=== PATIENT | male | born 1945 | race Caucasian/White ===

== ENCOUNTER → 2018-04-10 | Outpatient (CLI) | payer OTHER ==
[~2018-04-10] MED LIST: UNABLE
== END | disposition home or self-care (01) ==
LOC: C.PATHSPEC 16:40
PROVIDERS: ATTEND Dermatology
DX: C44.41 Basal cell carcinoma of skin of scalp and neck (principal)

== ENCOUNTER 2022-05-19 17:23 | Inpatient (IN) ==
[2022-05-19] MEDS ORDERED: SODIUM CHLORIDE 0.9% 1000ML 250 ML IV ONE (17:33)
[2022-05-19] MEDS ORDERED: SODIUM CHLORIDE 0.9% 1000ML 2,000 ML IV ONE (17:33)
[2022-05-19] MEDS ORDERED: ACETAMINOPHEN 325 MG TAB PO STA (17:33)
[2022-05-19] MEDS ORDERED: cefTRIAXone SODIUM 2,000 MG/70 ML BAG IV STA (17:33)
--- NOTE | 2022-05-19 17:37 | Emergency Department Note ---
Impression & Plan Fever of unknown origin, Elevated troponin, Hyponatremia, SIRS (systemic inflammatory response syndrome) ED Provider Note NAME: CONNOR BROWN AGE: 76 SEX: M : 1945 ARRIVES VIA: Walk-In INFORMANT: Patient ED PROVIDER(S): Yovanny Perera DO CHIEF COMPLAINT: fever HPI: Patient is a 76-year-old male who presents the ER with no significant past medical history for fevers. This started yesterday. Has been having fevers as high as 102. He has been having uncontrollable shaking chills at home. Difficulty sleeping last night secondary to the uncontrollable chills. No headache or change in vision. No chest pain or shortness of breath. No nausea, vomiting, or diarrhea. No dysuria, urgency, or frequency. He does spend a fair amount of time outside clearing brush but has not noticed any tick bites. Has been taking intermittent Tylenol and Motrin. No one else around him has been sick. ROS: See above HPI for pertinent positives & negatives. A total of 10 systems reviewed and were otherwise negative. PAST MEDICAL HISTORY:See Below PAST SURGICAL HISTORY:See Below FAMILY HISTORY:See Below SOCIAL HISTORY:See Below HOME MEDICATIONS:See Below ALLERGIES:See Below VITALS:See Below PHYSICAL EXAMINATION: GENERAL: Sitting up in bed, alert, well appearing, well nourished, no distress, non-toxic EYE EXAM: normal conjunctiva. OROPHARYNX: no exudate, no erythema, lips, buccal mucosa, and tongue normal and mucous membranes are moist NECK: supple, no nuchal rigidity, no adenopathy, non-tender LUNGS: Clear to auscultation. Normal chest wall mechanics HEART: tachy, S1 normal and S2 normal ABDOMEN: abdomen soft, non-tender, normo-active bowel sounds, no masses, no rebound or guarding. UPPER EXTREMITIES: upper extremities are grossly normal. LOWER EXTREMITIES: No pitting edema. NEURO EXAM: Normal sensorium, cranial nerves II-XII grossly intact, normal speech, no gross weakness of arms, no gross weakness of legs. MEDICAL DECISION MAKING: Patient is a 76-year-old male who presents the found to be afebrile, tachycardic and hypotensive with systolic pressures in the 90s. IVs were established blood work was obtained. Labs show leukopenia at 4000. No significant anemia. Platelets were slightly low at 132. INR was unremarkable. BMP with mild hyponatremia 133. LFTs bilirubin were unremarkable. Calcium slightly low at 8.4. Trop was elevated at 30. Influenza was negative. Patient was given 2 g o f Rocephin. Patient was given IV doxycycline as it was concerned that this patient may have anaplasmosis with the leukopenia, hyponatremia and slightly low platelets at 130. Patient was updated bedside. Discussed with hospitalist for further evaluation as UA was clean there is no inclusion bodies in the Lyme were negative as well as influenza and COVID. Patient did drop his pressures after 2L slightly in the 90s and did trend back up with an additional 500 cc bolus. Triage Nursing notes reviewed. Limited review of prior medical records performed Vital Signs: reviewed and remarkable for febrile, tachycardic and hypotensive Differential diagnosis: Differential diagnosis includes etiologies such as sepsis, UTI, pneumonia, metabolic, electrolyte abnormalities, cardiac sources, intracerebral event, toxicologic, neurological, as well as others were entertained. ER treatment provided: See below Diagnostics interpreted by me: ECG: Sinus rhythm rate 95 Normal axis No PVCs QTC 434 Cardiac Monitoring: An order was placed for continuous cardiac monitoring. The monitor shows a rate of 90 with sinus rhythm. Laboratory studies: As stated above and show below. Imaging studies: Portable AP upright 1 view of the chest is unremarkable Consultation(s): Discussed with Thiago Gonzales for further evaluation Procedures: none Critical Care: None Past Med/Surg History Medical History (Updated 05/19/22 @ 22:32 by Yovanny Perera DO) AVM (arteriovenous malformation) of colon Hypothyroidism Surgical History (Updated 05/19/22 @ 19:44 by Mary Ellen Garza PA-C) History of appendectomy History of hernia repair Family History (Updated 05/19/22 @ 19:46 by Mary Ellen Garza PA-C) Mother Heart disease Father Heart disease Brother Diabetes Heart disease Social History Smoking Status: Former smoker Tobacco Type: Cigarettes Feels Safe at Home: Yes Allergies Allergies Allergy/AdvReac Type Severity Reaction Status Date / Time No Known Allergies Verified 05/19/22 18:16 Home Meds Home Medications Medication Instructions Recorded Confirmed ascorbic acid (vitamin C) 60 mg 60 mg PO DAILY 05/19/22 05/19/22 lozenges cholecalciferol (vitamin D3) 25 25 mcg PO DAILY 05/19/22 05/19/22 mcg (1,000 unit) capsule (Vitamin D3) levothyroxine 100 mcg tablet 100 mcg PO QAM 05/19/22 05/19/22 Results & Data (ED) Vital Signs Vital Signs - 24 hr 05/19/22 17:24 05/19/22 17:57 05/19/22 18:16 Temperature 38.6 C H Temperature Source Oral Pulse Rate 113 H Pulse Rate [Left Finger] 87 88 Pulse Rhythm [Left Finger] Regular Regular Pulse Strength [Left Finger] Normal Normal Respiratory Rate 17 18 18 Respiratory Effort / Characteristics Non-Labored Non-Labored Non-Labored Respiratory Depth Normal Normal Respiratory Pattern Regular Regular Blood Pressure 95/54 L Blood Pressure [Left Arm] 112/62 123/57 L Blood Pressure Mean 67 Blood Pressure Mean [Left Arm] 78 79 Blood Pressure Position [Left Arm] Sitting Pulse Oximetry 98 95 96 Oxygen Delivery Method Room Air Room Air Room Air Sepsis Recent Fever Within 48 Hours Yes Sepsis New/Unexplained Change in Mental Status N/A Sepsis Action Taken by Nursing Physician Notified 05/19/22 19:27 05/19/22 20:31 05/19/22 21:57 Temperature 37.3 C Temperature Source Oral Pulse Rate Pulse Rate [Left Finger] 82 74 62 Pulse Rhythm [Left Finger] Pulse Strength [Left Finger] Respiratory Rate 22 18 18 Respiratory Effort / Characteristics Non-Labored Spontaneous Respiratory Depth Normal Respiratory Pattern Regular Blood Pressure Blood Pressure [Left Arm] 96/52 L 110/48 L 111/69 Blood Pressure Mean Blood Pressure Mean [Left Arm] 66 68 83 Blood Pressure Position [Left Arm] Lying Pulse Oximetry 97 96 95 Oxygen Delivery Method Room Air Room Air Room Air Sepsis Recent Fever Within 48 Hours Sepsis New/Unexplained Change in Mental Status Sepsis Action Taken by Nursing Laboratory Data Result diagrams: 05/19/22 17:45 05/19/22 17:45 Lab Results 05/19/22 05/19/22 05/19/22 Range/Units 17:45 17:45 17:45 WBC 4.11 L (4.8-10.8) K/uL RBC 4.67 L (4.7-6.1) M/uL Hgb 14.9 (14.0-18.0) g/dL Hct 42.2 (42-52) % MCV 90.4 (80-100) fL MCH 31.9 (25-34) pg MCHC 35.3 (32-36) g/dL RDW Std Deviation 42.7 (36.4-46.3) fL RDW Coeff of Puma 12.9 (11.5-14.5) % Plt Count 132 (130-400) K/uL MPV 10.8 H (7.4-10.4) fL Immature Gran % (Auto) 0.5 % Neut % (Auto) 87.7 % Lymph % (Auto) 7.5 % [place] % (Auto) 3.9 % Eos % (Auto) 0.2 % Baso % (Auto) 0.2 % Neut # (Auto) 3.60 (1.4-6.5) K/uL Lymph # (Auto) 0.31 L (1.2-3.4) K/uL [place] # (Auto) 0.16 (0.11-0.59) K/uL Eos # (Auto) 0.01 (0-0.5) K/uL Baso # (Auto) 0.01 (0-0.2) K/uL Immature Gran # (Auto) 0.02 (0.00-0.02) K/uL PT 11.8 (9.0-12.0) Seconds INR 1.1 (0.9-1.1) APTT 31.7 H (21.0-31.0) Seconds PTT Ratio 1.2 Sodium (136-145) mmol/L Potassium (3.5-5.1) mmol/L Chloride (98-107) mmol/L Carbon Dioxide (21-32) mmol/L Anion Gap (3-11) BUN (6-23) mg/dl Creatinine (0.6-1.4) mg/dl Est Cr Clr Drug Dosing ml/min Est GFR ( Amer) ml/min Est GFR (Non-Af Amer) ml/min BUN/Creatinine Ratio (10-20) Glucose (70-99(Fasting)) mg/dl Lactate (0.4-2.0) mmol/L Calcium (8.5-10.1) mg/dl Magnesium (1.7-2.4) mg/dl Total Bilirubin (0.2-1.0) mg/dl AST (13-39) U/L ALT (7-52) U/L Alkaline Phosphatase (34-104) U/L Troponin I High Sens (0-20) pg/ml Total Protein (6.0-8.3) gm/dl Albumin (3.4-5.0) gm/dl Globulin (2.5-4.0) gm/dl Albumin/Globulin Ratio (0.9-2) Procalcitonin 0.52 H (0-0.5) ng/ml Urine Color Urine Appearance (Clear) Urine pH (4.5-7.5) Ur Specific [place] (1.000-1.030) Urine Protein (Negative) Urine Glucose (UA) (Negative) Urine Ketones (Negative) Urine Blood (Negative) Urine Nitrite (Negative) Urine Bilirubin (Negative) Urine Urobilinogen (Negative) Ur Leukocyte Esterase (Negative) Urine WBC (Auto) (0-5) /hpf Urine RBC (Auto) (0-4) /hpf U Hyaline Cast (Auto) (0-5) /lpf U Epithel Cells (Auto) (0-5) /lpf Urine Bacteria (Auto) (Negative) Anaplasma Smear See Comment Lyme Disease IgG Ab Negative (Negative) Lyme Disease IgM Ab Negative (Negative) SARS-CoV-2 (PCR) (Negative) Influ A Molecular Assay (Negative) Influ B Molecular Assay (Negative) 05/19/22 05/19/22 05/19/22 Range/Units 17:45 17:45 17:45 WBC (4.8-10.8) K/uL RBC (4.7-6.1) M/uL Hgb (14.0-18.0) g/dL Hct (42-52) % MCV (80-100) fL MCH (25-34) pg MCHC (32-36) g/dL RDW Std Deviation (36.4-46.3) fL RDW Coeff of Puma (11.5-14.5) % Plt Count (130-400) K/uL MPV (7.4-10.4) fL Immature Gran % (Auto) % Neut % (Auto) % Lymph % (Auto) % [place] % (Auto) % Eos % (Auto) % Baso % (Auto) % Neut # (Auto) (1.4-6.5) K/uL Lymph # (Auto) (1.2-3.4) K/uL [place] # (Auto) (0.11-0.59) K/uL Eos # (Auto) (0-0.5) K/uL Baso # (Auto) (0-0.2) K/uL Immature Gran # (Auto) (0.00-0.02) K/uL PT (9.0-12.0) Seconds INR (0.9-1.1) APTT (21.0-31.0) Seconds PTT Ratio Sodium 133 L (136-145) mmol/L Potassium 3.8 (3.5-5.1) mmol/L Chloride 100 (98-107) mmol/L Carbon Dioxide 24 (21-32) mmol/L Anion Gap 9 (3-11) BUN 19 (6-23) mg/dl Creatinine 1.07 (0.6-1.4) mg/dl Est Cr Clr Drug Dosing 62.5 ml/min Est GFR ( Amer) 78.8 ml/min Est GFR (Non-Af Amer) 68.0 ml/min BUN/Creatinine Ratio 17.8 (10-20) Glucose 134 H (70-99(Fasting)) mg/dl Lactate (0.4-2.0) mmol/L Calcium 8.4 L (8.5-10.1) mg/dl Magnesium 2.0 (1.7-2.4) mg/dl Total Bilirubin 0.6 (0.2-1.0) mg/dl AST 30 (13-39) U/L ALT 28 (7-52) U/L Alkaline Phosphatase 66 (34-104) U/L Troponin I High Sens 28.3 H (0-20) pg/ml Total Protein 6.7 (6.0-8.3) gm/dl Albumin 3.8 (3.4-5.0) gm/dl Globulin 2.9 (2.5-4.0) gm/dl Albumin/Globulin Ratio 1.3 (0.9-2) Procalcitonin (0-0.5) ng/ml Urine Color Urine Appearance (Clear) Urine pH (4.5-7.5) Ur Specific [place] (1.000-1.030) Urine Protein (Negative) Urine Glucose (UA) (Negative) Urine Ketones (Negative) Urine Blood (Negative) Urine Nitrite (Negative) Urine Bilirubin (Negative) Urine Urobilinogen (Negative) Ur Leukocyte Esterase (Negative) Urine WBC (Auto) (0-5) /hpf Urine RBC (Auto) (0-4) /hpf U Hyaline Cast (Auto) (0-5) /lpf U Epithel Cells (Auto) (0-5) /lpf Urine Bacteria (Auto) (Negative) Anaplasma Smear Lyme Disease IgG Ab (Negative) Lyme Disease IgM Ab (Negative) SARS-CoV-2 (PCR) NEGATIVE (Negative) Influ A Molecular Assay Negative (Negative) Influ B Molecular Assay Negative (Negative) 05/19/22 05/19/22 Range/Units 18:27 Unknown WBC (4.8-10.8) K/uL RBC (4.7-6.1) M/uL Hgb (14.0-18.0) g/dL Hct (42-52) % MCV (80-100) fL MCH (25-34) pg MCHC (32-36) g/dL RDW Std Deviation (36.4-46.3) fL RDW Coeff of [place] (11.5-14.5) % Plt Count (130-400) K/uL MPV (7.4-10.4) fL Immature Gran % (Auto) % Neut % (Auto) % Lymph % (Auto) % [place] % (Auto) % Eos % (Auto) % Baso % (Auto) % Neut # (Auto) (1.4-6.5) K/uL Lymph # (Auto) (1.2-3.4) K/uL [place] # (Auto) (0.11-0.59) K/uL Eos # (Auto) (0-0.5) K/uL Baso # (Auto) (0-0.2) K/uL Immature Gran # (Auto) (0.00-0.02) K/uL PT (9.0-12.0) Seconds INR (0.9-1.1) APTT (21.0-31.0) Seconds PTT Ratio Sodium (136-145) mmol/L Potassium (3.5-5.1) mmol/L Chloride (98-107) mmol/L Carbon Dioxide (21-32) mmol/L Anion Gap (3-11) BUN (6-23) mg/dl Creatinine (0.6-1.4) mg/dl Est Cr Clr Drug Dosing ml/min Est GFR ( Amer) ml/min Est GFR (Non-Af Amer) ml/min BUN/Creatinine Ratio (10-20) Glucose (70-99(Fasting)) mg/dl Lactate 1.1 (0.4-2.0) mmol/L Calcium (8.5-10.1) mg/dl Magnesium (1.7-2.4) mg/dl Total Bilirubin (0.2-1.0) mg/dl AST (13-39) U/L ALT (7-52) U/L Alkaline Phosphatase (34-104) U/L Troponin I High Sens (0-20) pg/ml Total Protein (6.0-8.3) gm/dl Albumin (3.4-5.0) gm/dl Globulin (2.5-4.0) gm/dl Albumin/Globulin Ratio (0.9-2) Procalcitonin (0-0.5) ng/ml Urine Color Yellow Urine Appearance Clear (Clear) Urine pH 6.0 (4.5-7.5) Ur Specific [place] 1.011 (1.000-1.030) Urine Protein Negative (Negative) Urine Glucose (UA) Negative (Negative) Urine Ketones Negative (Negative) Urine Blood Trace H (Negative) Urine Nitrite Negative (Negative) Urine Bilirubin Negative (Negative) Urine Urobilinogen Negative (Negative) Ur Leukocyte Esterase Negative (Negative) Urine WBC (Auto) 1-5 (0-5) /hpf Urine RBC (Auto) 0-4 (0-4) /hpf U Hyaline Cast (Auto) 0 (0-5) /lpf U Epithel Cells (Auto) 10-20 H (0-5) /lpf Urine Bacteria (Auto) Negative (Negative) Anaplasma Smear Lyme Disease IgG Ab (Negative) Lyme Disease IgM Ab (Negative) SARS-CoV-2 (PCR) (Negative) Influ A Molecular Assay (Negative) Influ B Molecular Assay (Negative) Administered Medications Discontinued Medications Acetaminophen (Acetaminophen 325 Mg Tab) 650 mg PO NOW STA Stop: 05/19/22 17:34 Last Admin: 05/19/22 18:04 Dose: 650 mg Documented by: [id number] Sodium Chloride (Nss 1000ml) 2,000 mls @ 999 mls/hr IV .Q2H1M ONE Stop: 05/19/22 19:33 Last Infusion: 05/19/22 20:47 Dose: 0 mls/hr Documented by: [id number] Admin: 05/19/22 17:52 Dose: 999 mls/hr Documented by: [id number] Sodium Chloride (Nss 1000ml) 250 mls @ 999 mls/hr IV .Q16M ONE Stop: 05/19/22 17:48 Last Infusion: 05/19/22 19:25 Dose: 0 mls/hr Documented by: [id number] Admin: 05/19/22 17:52 Dose: 999 mls/hr Documented by: [id number] Ceftriaxone Sodium (Rocephin) 2,000 mg in 70 mls @ 140 mls/hr IV NOW STA Stop: 05/19/22 18:02 Last Infusion: 05/19/22 20:12 Dose: 0 mls/hr Documented by: [id number] Admin: 05/19/22 19:25 Dose: 140 mls/hr Documented by: [id number] Doxycycline Hyclate 100 mg/ (Dextrose) 110 mls @ 50 mls/hr IV NOW STA Stop: 05/19/22 21:33 Last Admin: 05/19/22 21:02 Dose: 50 mls/hr Documented by: [id number] Calcium Gluconate () 1,000 mg in 60 mls @ 240 mls/hr IV NOW STA Stop: 05/19/22 19:55 Last Infusion: 05/19/22 21:02 Dose: 0 mls/hr Documented by: [id number] Admin: 05/19/22 20:44 Dose: 240 mls/hr Documented by: [id number] Imaging Data Radiologist's Impression: Chest X-Ray 05/19/22 17:34 XR chest 1V portable CLINICAL HISTORY: SEPSIS TECHNIQUE: Single frontal radiograph of the chest was obtained. Comparison: None available at the time of this dictation. FINDINGS: No lines and tubes are seen. The cardiomediastinal silhouette is normal. The lungs are clear. No evidence of pleural effusion or pneumothorax. IMPRESSION: No acute abnormalities and in particular no evidence of pneumonia. ACT 112: Negative or not required by law. Electronically signed by: Tk Jaramillo M.D. 05/19/2022 6:33 PM Discharge Plan Visit Data Chief Complaint: Fever Stated Complaint: SPIKED FEVER EVERY 4 HOURS HIGH OF 102 ED Provider: Yovanny Perera Discharge Problem: Fever of unknown origin, Elevated troponin, Hyponatremia, SIRS (systemic inflammatory response syndrome) Forms Stand Alone Forms: My [facility] Prescriptions Prescriptions: No Action Vitamin C 60 mg Lozenge 60 mg PO DAILY RF: 0 levothyroxine 100 mcg tablet 100 mcg PO QAM RF: 0 cholecalciferol (vitamin D3) [Vitamin D3] 25 mcg (1,000 unit) Capsule 25 mcg PO DAILY RF: 0 Referrals Referrals: PCP,NO [Physician] -
--- NOTE | 2022-05-19 18:34 | XRay Report ---
XR chest 1V portable CLINICAL HISTORY: SEPSIS TECHNIQUE: Single frontal radiograph of the chest was obtained. Comparison: None available at the time of this dictation. FINDINGS: No lines and tubes are seen. The cardiomediastinal silhouette is normal. The lungs are clear. No evid ence of pleural effusion or pneumothorax. IMPRESSION: No acute abnormalities and in particular no evidence of pneumonia. ACT 112: Negative or not required by law. Electronically signed by: Tk Jaramillo M.D. 05/19/2022 6:33 PM
[2022-05-19 18:42] LABS: Basophils # (auto) 0.01 K/uL (0-0.2); Basophils % (auto) 0.2 %; Eosinophils # (auto) 0.01 K/uL (0-0.5); Eosinophils % (auto) 0.2 %; Hematocrit (blood only) 42.2 % (42-52); Hemoglobin 14.9 g/dL (14.0-18.0); Immature Granulocytes # (auto) 0.02 K/uL (0.00-0.02); Immature Granulocytes % (auto) 0.5 %; Lymphocytes # (auto) 0.31 K/uL (1.2-3.4); Lymphocytes % (auto) 7.5 %; Mean Corpuscular Hemoglobin 31.9 pg (25-34); Mean Corpuscular Hgb Conc 35.3 g/dL (32-36); Mean Corpuscular Volume 90.4 fL (80-100); Mean Platelet Volume 10.8 fL (7.4-10.4); Monocytes # (auto) 0.16 K/uL (0.11-0.59); Monocytes % (auto) 3.9 %; Neutrophils % (auto) 87.7 %; Platelet Count 132 K/uL (130-400); RDW Coefficient of Variation 12.9 % (11.5-14.5); RDW Standard Deviation 42.7 fL (36.4-46.3); Red Blood Count 4.67 M/uL (4.7-6.1); White Blood Count 4.11 K/uL (4.8-10.8)
[2022-05-19 18:54] LABS: INR 1.1 (0.9-1.1); Partial Thromboplastin Ratio 1.2; Partial Thromboplastin Time 31.7 Seconds (21.0-31.0); Prothrombin Time 11.8 Seconds (9.0-12.0)
[2022-05-19 19:07] LABS: Albumin Globulin Ratio 1.3 (0.9-2); Albumin Level 3.8 gm/dl (3.4-5.0); BUN Creatinine Ratio 17.8 (10-20); Bilirubin,Total 0.6 mg/dl (0.2-1.0); Calcium 8.4 mg/dl (8.5-10.1); Creatinine Clr Calc Pharmacy 62.5 ml/min; Est GFR (African American) 78.8 ml/min; Globulin 2.9 gm/dl (2.5-4.0); Potassium 3.8 mmol/L (3.5-5.1); Total Protein 6.7 gm/dl (6.0-8.3); Troponin I High Sensitivity 28.3 pg/ml (0-20)
[2022-05-19 19:13] LABS: Influenza A virus by PCR Negative (Negative); Influenza B virus by PCR Negative (Negative)
[2022-05-19] MEDS ORDERED: DOXYCYCLINE HYCLATE 100 MG in DEXTROSE 5% 100 ML IV STA (19:22)
[2022-05-19] MEDS ORDERED: CALCIUM GLUCONATE 1,000 MG/60 ML BAG IV STA (19:41)
[2022-05-19 19:46] LABS: Lyme Ab IgG w/WB Rflx Negative (Negative)
[2022-05-19 19:47] LABS: Lyme Ab IgM w/WB Rflx Negative (Negative)
[2022-05-19 19:48] LABS: Procalcitonin 0.52 ng/ml (0-0.5)
--- NOTE | 2022-05-19 19:49 | History & Physical Report ---
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 - Awaiting tick panel results, will continue on IV antibiotics - was started on ceftriaxone and doxy in the ER - WBC at time of admission = - BCx x 2, follow - Tmax = 38.6 - Lactic acid = 1.1, Procalcitonin pending. Plt count is 132 and appears to be around baseline, follow am labs to monitor for thrombocytopenia - CXR reviewed as above (2) Hypothyroidism: Plan: - Cont levothyroxine 100 mcg daily, TSH normal as outpatient reviewed in Epic (3) Elevated troponin: Plan: - Noted to be elevated at 28.3, repeat Q6H - EKG reviewed and does not show acute ST wave changes, block or bradycardia (4) Hyponatremia: Plan: - 133 on admission, allow PO intake, pt has had poor appetitie in past 24 hrs. - Fluids overnight for hydration per thread trimmer Dvt ppx: teds, scds CODE: Full Dispo: From home, likely to remain in the hospital x 1-[address] Castelan's addendum for further findings and A/P. History of Present Illness Chief Complaint: Fever Primary Care Provider: Acosta St MD This is a 76 yo M with PMHx of hypothyroidism who presents with fever to the ER due to severity of such for past 24 hours. He has had 102-103 fever at home for 24 hours despite alternating with tylenol and ibuprofen routinely. He has no other symptoms of illness. His who is present at bedside supports the history. He has had a slightly poor appeite over the past day, but otherwise no abdominal complaints. 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 He is also very active and works around and maintains the property on his 9 [place] golf [place]. Pt denies any known tick bite, but states this is possible. He denies rash or bullseye markings. No other acute complaints. Allergies Allergy/AdvReac Type Severity Reaction Status Date / Time No Known Allergies Verified 05/19/22 18:16 Home Medications Medication Instructions Recorded Confirmed Type ascorbic acid (vitamin C) 60 mg 60 mg PO DAILY 05/19/22 05/19/22 History lozenges cholecalciferol (vitamin D3) 25 25 mcg PO DAILY 05/19/22 05/19/22 History mcg (1,000 unit) capsule (Vitamin D3) levothyroxine 100 mcg tablet 100 mcg PO QAM 05/19/22 05/19/22 History Past Med/Surg History Medical History (Updated 05/19/22 @ 22:32 by Yovanny Perera DO) AVM (arteriovenous malformation) of colon Hypothyroidism Surgical History (Updated 05/19/22 @ 19:44 by Mary Ellen Garza PA-C) History of appendectomy History of hernia repair Family History (Updated 05/19/22 @ 19:46 by Mary Ellen Garza PA-C) Mother Heart disease Father Heart disease Brother Diabetes Heart disease Social History Smoking Status: Former smoker Tobacco Type: Cigarettes Feels Safe at Home: Yes Review of Systems Review of Systems: Constitutional:As per HPI, + fever, sweats and rigors Eyes: No diplopia, no worsening or blurred vision ENT: normal hearing, no trouble swallowing Respiratory: No cough, sputum, dyspnea at rest or on exertion Cardiovascular: No chest pain, tightness or palpitations Abdomen: No pain, nausea, vomiting, diarrhea or constipation Musculoskeletal: No joint pain, calf pain, swelling Neurologic: No weakness, numbness/tingling, or balance problems Psychiatric: No anxiety or depression Skin: No rash or itch Physical Exam Physical Exam: General: awake, alert, no apparent distress, skin is diaphoretic to touch, looks younger than true age Head: Normocephalic, atraumatic ENT: PERRL, EOMI, no pharyngeal exudate, mucous membranes moist Chest: Clear to auscultation, on room air, no adventitious breath sounds Cardiac: Regular rate and rhythm, no murmur, no JVD, normal peripheral pulses, good capillary refill Abdominal: NABS x 4 quadrants, soft, nondistended, nontender to palpation, no rebound or guarding Extremities: Normal inspection, no peripheral edema or erythema, calfs nontender to palpation Psych: Normal mood and affect Neuro: AAO x 3, strength intact bilaterally and rated 5/5, no motor deficits, speech is clear, no peripheral sensory deficits Results & Data Results & Data ([facility]) Vital Signs (Past 12 Hours) Vital Signs Temp Pulse Pulse Resp BP BP Pulse Ox 05/19/22 19:27 37.3 C 82 22 96/52 L 97 05/19/22 18:16 88 18 123/57 L 96 05/19/22 17:57 87 18 112/62 95 05/19/22 17:24 38.6 C H 113 H 17 95/54 L 98 Laboratory Results 05/19/22 18:27 Aerobic Blood Culture - Pending Blood Anaerobic Blood Culture - Pending 05/19/22 17:45 Aerobic Blood Culture - Pending Blood Anaerobic Blood Culture - Pending 05/19/22 05/19/22 05/19/22 18:27 17:45 17:45 WBC RBC Hgb Hct MCV MCH MCHC RDW Std Deviation RDW Coeff of [place] Plt Count MPV Immature Gran % (Auto) Neut % (Auto) Lymph % (Auto) [place] % (Auto) Eos % (Auto) Baso % (Auto) Neut # (Auto) Lymph # (Auto) [place] # (Auto) Eos # (Auto) Baso # (Auto) Immature Gran # (Auto) PT INR APTT PTT Ratio Sodium 133 L Potassium 3.8 Chloride 100 Carbon Dioxide 24 Anion Gap 9 BUN 19 Creatinine 1.07 Est Cr Clr Drug Dosing 62.5 Est GFR ( Amer) 78.8 Est GFR (Non-Af Amer) 68.0 BUN/Creatinine Ratio 17.8 Glucose 134 H Lactate 1.1 Calcium 8.4 L Magnesium 2.0 Total Bilirubin 0.6 AST 30 ALT 28 Alkaline Phosphatase 66 Troponin I High Sens 28.3 H Total Protein 6.7 Albumin 3.8 Globulin 2.9 Albumin/Globulin Ratio 1.3 Lyme Disease IgG Ab Lyme Disease IgM Ab Influ A Molecular Assay Negative Influ B Molecular Assay Negative 05/19/22 05/19/22 05/19/22 17:45 17:45 17:45 WBC 4.11 L RBC 4.67 L Hgb 14.9 Hct 42.2 MCV 90.4 MCH 31.9 MCHC 35.3 RDW Std Deviation 42.7 RDW Coeff of [place] 12.9 Plt Count 132 MPV 10.8 H Immature Gran % (Auto) 0.5 Neut % (Auto) 87.7 Lymph % (Auto) 7.5 [place] % (Auto) 3.9 Eos % (Auto) 0.2 Baso % (Auto) 0.2 Neut # (Auto) 3.60 Lymph # (Auto) 0.31 L [place] # (Auto) 0.16 Eos # (Auto) 0.01 Baso # (Auto) 0.01 Immature Gran # (Auto) 0.02 PT 11.8 INR 1.1 APTT 31.7 H PTT Ratio 1.2 Sodium Potassium Chloride Carbon Dioxide Anion Gap BUN Creatinine Est Cr Clr Drug Dosing Est GFR ( Amer) Est GFR (Non-Af Amer) BUN/Creatinine Ratio Glucose Lactate Calcium Magnesium Total Bilirubin AST ALT Alkaline Phosphatase Troponin I High Sens Total Protein Albumin Globulin Albumin/Globulin Ratio Lyme Disease IgG Ab Negative Lyme Disease IgM Ab Negative Influ A Molecular Assay Influ B Molecular Assay Diagnostic Findings Chest X-Ray 05/19/22 17:34 XR chest 1V portable CLINICAL HISTORY: SEPSIS TECHNIQUE: Single frontal radiograph of the chest was obtained. Comparison: None available at the time of this dictation. FINDINGS: No lines and tubes are seen. The cardiomediastinal silhouette is normal. The lungs are clear. No evidence of pleural effusion or pneumothorax. IMPRESSION: No acute abnormalities and in particular no evidence of pneumonia. ACT 112: Negative or not required by law. Electronically signed by: Tk Jaramillo M.D. 05/19/2022 6:33 PM Code Status & VTE Plan Code Status Full code Supervising Physician Co-Signing Physician Notes IM ATTENDING : Patient seen and examined. History obtained from patient, family, and records. Preceding documentation by Ms. Inés Garza reviewed. 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 Doxycycline for now for possible tickborne infection Follow troponin, TTE if w progression Check hemoglobin A1c DVT prophylaxis. Lovenox subcu Full code Text document was generated using [employer] voice recognition software. It may contain grammatical or spelling errors. Kindly contact undersigned for clarification of any documentation item in question.
[2022-05-19 19:50] LABS: Appearance Urine Clear (Clear); Bacteria Urine Automated Negative (Negative); Bilirubin Urine Negative (Negative); Blood Urine Trace (Negative); Cast Urine Automated 0 /lpf (0-5); Color Urine Yellow; Glucose Urine UA Negative (Negative); Ketones Urine Negative (Negative); Leukocyte Esterase Urine Negative (Negative); Nitrite Urine Negative (Negative); Protein Urine Negative (Negative); RBC Urine Automated 0-4 /hpf (0-4); Specific Gravity Urine 1.011 (1.000-1.030); Urobilinogen Urine Negative (Negative)
[2022-05-19] MEDS ORDERED: PROMETHAZINE HCL 12.5 MG in SODIUM CHLORIDE 0.9% 50 ML IV PRN (22:59)
[2022-05-19] MEDS ORDERED: ACETAMINOPHEN 325 MG TAB PO PRN (22:59)
[2022-05-19] MEDS ORDERED: SODIUM CHLORIDE 0.9% 1000ML 1,000 ML IV STA (23:06)
[2022-05-20 03:51] LABS: Basophils # (auto) 0.01 K/uL (0-0.2); Basophils % (auto) 0.3 %; Eosinophils # (auto) 0.02 K/uL (0-0.5); Eosinophils % (auto) 0.6 %; Hematocrit (blood only) 39.7 % (42-52); Immature Granulocytes # (auto) 0.01 K/uL (0.00-0.02); Immature Granulocytes % (auto) 0.3 %; Lymphocytes # (auto) 0.22 K/uL (1.2-3.4); Lymphocytes % (auto) 6.6 %; Mean Corpuscular Hemoglobin 31.7 pg (25-34); Mean Corpuscular Hgb Conc 35.3 g/dL (32-36); Mean Corpuscular Volume 89.8 fL (80-100); Mean Platelet Volume 10.5 fL (7.4-10.4); Monocytes # (auto) 0.08 K/uL (0.11-0.59); Monocytes % (auto) 2.4 %; Neutrophils # (auto) 3.01 K/uL (1.4-6.5); Neutrophils % (auto) 89.8 %; Platelet Count 118 K/uL (130-400); RDW Coefficient of Variation 12.9 % (11.5-14.5); RDW Standard Deviation 42.3 fL (36.4-46.3); Red Blood Count 4.42 M/uL (4.7-6.1); White Blood Count 3.35 K/uL (4.8-10.8)
[2022-05-20 03:56] LABS: Partial Thromboplastin Ratio 1.2; Partial Thromboplastin Time 34.3 Seconds (21.0-31.0)
[2022-05-20 04:05] LABS: Albumin Globulin Ratio 1.3 (0.9-2); Albumin Level 3.3 gm/dl (3.4-5.0); Bilirubin,Total 0.7 mg/dl (0.2-1.0); Calcium 7.9 mg/dl (8.5-10.1); Creatinine Clr Calc Pharmacy 66.9 ml/min; Est GFR (African American) 85.6 ml/min; Est GFR (Non-African American) 73.8 ml/min; Globulin 2.5 gm/dl (2.5-4.0); Potassium 3.8 mmol/L (3.5-5.1); Total Protein 5.8 gm/dl (6.0-8.3)
[2022-05-20 04:11] LABS: RBC Morphology Unremarkable
[2022-05-20 08:04] LABS: Estimated Average Glucose 120 mg/dl; Hemoglobin A1C 5.8 % (4.5-5.6)
[2022-05-20] MEDS: LEVOTHYROXINE SODIUM 100 MCG TABLET PO SCH (08:11)
[2022-05-20] MEDS: DOXYCYCLINE HYCLATE 100 MG CAP PO SCH ×2 (09:05→20:21)
[2022-05-20] MEDS: ENOXAPARIN INJ 40 MG/0.4 ML SYR SQ SCH (09:06)
--- NOTE | 2022-05-20 10:20 | Electrocardiogram Report ---
Test Reason : Blood Pressure : / mmHG Vent. Rate : 095 BPM Atrial Rate : 094 BPM P-R Int : 000 ms QRS Dur : 088 ms QT Int : 346 ms P-R-T Axes : 000 000 019 degrees QTc Int : 434 ms Sinus rhythm Normal ECG No previous ECGs available Confirmed by Erick Bella ([id number]) on 05/20/2022 10:20:36 AM Referred By: REFERRED SELF Confirmed By:Erick Bella
--- NOTE | 2022-05-20 12:09 | Cardiology Consultation ---
Date of Consultation May 20, 2022 Assessment & Plan (1) Fever of unknown origin: (2) Paroxysmal atrial fibrillation: (3) AVM (arteriovenous malformation) of colon: (4) Elevated troponin: (5) Aortic root enlargement: 76 year old male presents with fever, with incidental finding of rate co ntrolled paroxysmal atrial fibrillation 1) Fever of unknown origin: -Blood cultures pending. -Lyme screen negative. Anaplasmosis testing in process. -Another consideration is deer tick virus / [place] virus. (2) Paroxysmal atrial fibrillation: -Rate controlled. [id number] is 2 for age of (almost 77 years). -Patient however has history of a large nonbleeding arteriovenous malformation in the ascending colon noted at time of screening colonoscopy in 2018. -At present, recommend ongoing observation as benefits/risks of anticoagulation to be determined. (3) AVM (arteriovenous malformation) of colon: -As noted above. Hemoglobin stable at present. (4) Elevated troponin: Mildly elevated at bedtime troponin of 28.3, 30.4, 64.9 PG per mL x3 measurements. Patient without ischemic changes on EKG. No present or recent symptoms suggestive angina and is very physically active at baseline. Echocardiogram reassuring with no regional wall motion abnormalities. Likely related to myocardial strain from his noncardiac illness. Agree with repeat at bedtime troponin to be drawn at 1500 today. (5) Aortic root enlargement: -Aortic root dilatation in the range of 4.6-4.7 on echocardiogram. Trileaflet aortic valve with mild calcification, no aortic stenosis. -Will consider further evaluation with CTA of thoracic aorta as an outpatent. Hypocalcemia. Differ to primary service. History of Present Illness Attending Physician: Angela Miles MD History of Present Illness Vin Holloway is a 76 year old male seen in cardiology consultation per the request of Dr Yeboah for the evaluation of newly recognized paroxysmal atrial fibrillation. 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 He denies any recent exertional chest discomfort or shortness of breath. He presented via the emergency room due to 2 days of progressive fever, temperature 102 F at home. On arrival to the emergency room yesterday, vital signs obtained at 1724 included a temperature of 38.6C, he received a single dose of 650 mg of acetaminophen, and had a follow-up temperature of 37.6 C at 2300 last night, and has since been afebrile, with most recent temperature 36.7 C. He has not had any known to definite tick bites, but has been in an endemic area. Denies any recent bull's-eye rash. Today he is feeling improved. As far his Lyme screen was negative, urinalysis does not suggest infection, anaplasmosis testing in process. He remains on doxycycline having received a dose of IV Rocephin and doxycycline last evening. On presentation, sinus rhythm was documented on EKG. This morning however at around 8:00, it was noted on telemetry that he was having changes in his rhythm, and episodes of rate controlled paroxysmal atrial fibrillation in the 70s observed. Repeat EKG was performed just after 10 AM this morning, revealing rate controlled atrial fibrillation in the 70s. No ischemic changes. The paper copy of the EKG was reviewed which is on his chart, it is yet to have been downloaded to [employer]. Patient does note that on occasion he might feel an irregular heartbeat at baseline, but nothing that has been sustained or prolonged. He had previously been seen by cardiology and back to 2003 for an episode of dizziness, Holter monitor performed at that time revealed sinus rhythm with average rate in the 70s, occasional supraventricular ectopic beats noted as well as two 3 beat salvos of supraventricular tachycardia. Otherwise, patient has a history of cervical radiculopathy, for which she had been treated with physical therapy in the past. Recently had noted paresthesias in his hands and arms, and had been seen by primary care with plans to reestablish with physical therapy. He noted a recent concern of pain in his left third finger with concerns of foreign object. This was evaluated with a plain x-ray on 05/02/2022 as an outpatient, and was negative. Allergies Allergy/AdvReac Type Severity Reaction Status Date / Time No Known Allergies Verified 05/19/22 18:16 Home Medications Medication Instructions Recorded Confirmed Type ascorbic acid (vitamin C) 60 mg 60 mg PO DAILY 05/19/22 05/19/22 History lozenges cholecalciferol (vitamin D3) 25 25 mcg PO DAILY 05/19/22 05/19/22 History mcg (1,000 unit) capsule (Vitamin D3) levothyroxine 100 mcg tablet 100 mcg PO QAM 05/19/22 05/19/22 History Patient History Medical History (Updated 05/20/22 @ 12:01 by Garret Hauser DO) AVM (arteriovenous malformation) of colon Hypothyroidism Surgical History (Updated 05/19/22 @ 19:44 by Mary Ellen Garza PA-C) History of appendectomy History of hernia repair Family History (Updated 05/19/22 @ 19:46 by Mary Ellen Garza PA-C) Mother Heart disease Father Heart disease Brother Diabetes Heart disease Social History Smoking Status: Never smoker Tobacco Type: Cigarettes Hx Alcohol Use: Yes Hx Substance Use: No Beliefs That Will Affect Care: None Current Living Situation: Spouse Feels Safe at Home: Yes Safety Concerns: Feels Safe At This Time Assistive Devices: None Review of Systems Review of Systems: All systems reviewed & are unremarkable except as noted in HPI & below Physical Exam Physical Exam: Temp Pulse Resp BP Pulse Ox 36.7 C 82 18 107/46 L 93 05/20/22 11:24 05/20/22 11:24 05/20/22 11:24 05/20/22 11:24 05/20/22 11:24 Constitutional: WD/WN, vitals as above Respiratory: normal respiratory effort, lungs clear to auscultation Cardiovascular: Rate/Rhythm: + irregularly irregular Heart Sounds: normal S1 and normal S2; no murmur Extremities: no edema Skin: no rash Neurologic: PERRL, EOMI, accommodation nl, no face palsy, no dysarthria Genitourinary: no dysuria Results & Data ([facility]) Vital Signs (Past 12 Hours) Vital Signs Temp Pulse Resp BP Pulse Ox Pulse Ox 05/20/22 11:24 36.7 C 82 18 107/46 L 93 05/20/22 07:38 37.1 C 73 20 107/62 93 05/20/22 06:45 93 05/20/22 06:44 36.8 C 92 H 18 107/54 L 93 Laboratory Results Cardiac Enzymes 05/19/22 05/20/22 05/20/22 Range/Units 17:45 03:31 03:31 AST 30 39 (13-39) U/L Troponin I High Sens 28.3 H 30.4 H (0-20) pg/ml 05/20/22 Range/Units 07:38 AST (13-39) U/L Troponin I High Sens 64.9 H* D (0-20) pg/ml Coagulation 05/19/22 05/20/22 Range/Units 17:45 03:31 PT 11.8 (9.0-12.0) Seconds APTT 31.7 H 34.3 H (21.0-31.0) Seconds CBC 05/19/22 05/20/22 Range/Units 17:45 03:31 WBC 4.11 L 3.35 L (4.8-10.8) K/uL RBC 4.67 L 4.42 L (4.7-6.1) M/uL Hgb 14.9 14.0 (14.0-18.0) g/dL Hct 42.2 39.7 L (42-52) % Plt Count 132 118 L (130-400) K/uL Neut # (Auto) 3.60 3.01 (1.4-6.5) K/uL Lymph # (Auto) 0.31 L 0.22 L (1.2-3.4) K/uL Brooke # (Auto) 0.16 0.08 L (0.11-0.59) K/uL Eos # (Auto) 0.01 0.02 (0-0.5) K/uL Baso # (Auto) 0.01 0.01 (0-0.2) K/uL Comprehensive Metabolic Panel 05/19/22 05/20/22 Range/Units 17:45 03:31 Sodium 133 L 135 L (136-145) mmol/L Potassium 3.8 3.8 (3.5-5.1) mmol/L Chloride 100 105 (98-107) mmol/L Carbon Dioxide 24 23 (21-32) mmol/L BUN 19 17 (6-23) mg/dl Creatinine 1.07 1.00 (0.6-1.4) mg/dl Glucose 134 H 120 H (70-99(Fasting)) mg/dl Calcium 8.4 L 7.9 L (8.5-10.1) mg/dl AST 30 39 (13-39) U/L ALT 28 35 (7-52) U/L Alkaline Phosphatase 66 67 (34-104) U/L Total Protein 6.7 5.8 L (6.0-8.3) gm/dl Albumin 3.8 3.3 L (3.4-5.0) gm/dl Intake and Output 05/19/22 05/20/22 05/20/22 22:59 06:59 14:59 Intake Total 2395 / 2505 110 / 2505 Output Total Balance 2385 / 2495 110 / 2495 Intake: IV 2380 / 2490 110 / 2490 Calcium Gluconate 1,000 mg In 60 / 60 60 ml @ 240 mls/hr IV NOW STA Rx#:[id number] Doxycycline Hyclate 100 mg In 110 / 110 Dextrose 5% 100 ml @ 50 mls/hr IV NOW STA Rx#:[id number] Sodium Chloride 0.9% 1000ML 2, 2250 / 2250 000 ml @ 999 mls/hr IV .Q2H1M ONE Rx#:[id number] cefTRIAXone SODIUM 2,000 mg In 70 / 70 70 ml @ 140 mls/hr IV NOW STA Rx#:[id number] Oral Output: Urine Other: Other Intake Source Given for medication Weight 87 kg 88.2 kg Weight Measurement Method Estimated by Patient Built in [facility] Diagnostic Findings Echocardiogram performed 05/20/2022, reviewed independently: Mild concentric left ventricular hypertrophy, sigmoid septal morphology, no regional wall motion abnormalities, normal LVEF, 55 to 60%. The right ventricular chamber size and systolic function are normal. Mild mitral annular calcification present. Mild aortic valve calcification, without aortic stenosis. Moderate enlargement of the aortic root, in the range of 4.6 to 4.7 cm, the proximal ascending aorta is not visualized well enough to allow measurement.
--- NOTE | 2022-05-20 23:30 | Hospitalist Progress Note ---
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 - Awaiting tick panel results, will continue on IV antibiotics - was started on ceftriaxone and doxy in the ER - WBC at time of admission = - BCx x 2, follow - Tmax = 38.6 - Lactic acid = 1.1, Procalcitonin pending. Plt count is 132 and appears to be around baseline, follow am labs to monitor for thrombocytopenia - CXR reviewed as above (2) Hypothyroidism: Plan: - Cont levothyroxine 100 mcg daily, TSH normal as outpatient reviewed in [facility] (3) Elevated troponin: Plan: - Noted to be elevated at 28.3, repeat Q6H - EKG reviewed and does not show acute ST wave changes, block or bradycardia (4) Hyponatremia: Plan: - 133 on admission, allow PO intake, pt has had poor appetitie in past 24 hrs. 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 Castelan's addendum for further findings and A/P. Admission and Anticipated Discharge Date Admission Date: May 19, 2022 Results & Data Results & Data ([facility]) Vital Signs (Past 12 Hours) Vital Signs Temp Pulse Pulse Resp BP Pulse Ox 05/20/22 23:07 86 05/20/22 20:03 37.4 C 78 18 106/52 L 95 05/20/22 15:40 37.5 C 63 20 100/60 93 05/20/22 14:47 92 H
[2022-05-21] MEDS: LEVOTHYROXINE SODIUM 100 MCG TABLET PO SCH (05:41)
[2022-05-21] MEDS: DOXYCYCLINE HYCLATE 100 MG CAP PO SCH (09:38)
[2022-05-21] MEDS: ENOXAPARIN INJ 40 MG/0.4 ML SYR SQ SCH (09:38)
--- NOTE | 2022-05-21 10:46 | Cardiology Progress Note ---
Date of Service May 21, 2022 Assessment & Plan (1) Fever of unknown origin: (2) Paroxysmal atrial fibrillation: (3) AVM (arteriovenous malformation) of colon: (4) Elevated troponin: (5) Aortic root enlargement: Plan: 76 year old male presents with fever, with incidental finding of rate controlled paroxysmal atrial fibrillation . Patient with intermittent, asymptomatic , rate controlled atrial fibrillation the morning of 05/20. Was in SR by the afternoon and has remains in SR overnight, however repeat EKG at time of my assessment reveals atrial fibrillation at 68 bpm 1) Fever of unknown origin: -Blood cultures pending. -Lyme screen negative. Anaplasmosis testing in process. -Another consideration is deer tick virus / [place] virus. -Continue supportive care. Although pt had temperature of 38.1 last night, he state he was sleeping and did not feel poorly. He is eager for discharge. (2) Paroxysmal atrial fibrillation: -Rate controlled. [id number] is 2 for age of (almost 77 years). -Patient however has history of a large nonbleeding arteriovenous malformation in the ascending colon noted at time of screening colonoscopy in 2018. -At present, recommend ongoing observation as atrial fibrillation episode was brief, and am concerned about bleeding risk. -Can consider 14 day Zio monitor to assess AF burden as outpatient AFTER he has recovered from his febrile illness. (3) AVM (arteriovenous malformation) of colon: -As noted above. Hemoglobin stable at present. (4) Elevated troponin: Mildly elevated at bedtime troponin of 28.3, 30.4, 64.9. 118, 119 PG per mL x5 measurements. Repeat EKG am of 05/21/22=AF at 68 bpm , no significant repolarization changes to suggest ischemia. No present or recent symptoms suggestive angina and is very physically active at baseline. Echocardiogram reassuring with no regional wall motion abnormalities. Likely related to myocardial strain from his noncardiac illness. Plan on repeat at 12 noon. (5) Aortic root enlargement: -Aortic root dilatation in the range of 4.6-4.7 on echocardiogram. Trileaflet aortic valve with mild calcification, no aortic stenosis. -Will consider further evaluation with CTA of thoracic aorta as an outpatient. Hypocalcemia. Differ to primary service. Disposition: await 12 noon labs. Likely plan for discharge with 2 week Zio monitor and outpt cardiology follow up. Admission and Anticipated Discharge Date Admission Date: May 19, 2022 Subjective Patient seen in cardiology follow up of paroxysmal atrial fibrillation. Had recurrent fever documented overnight , 05/20/22, 38.1 Degrees C. Review of Systems Review of Systems: All systems reviewed & are unremarkable except as noted in HPI & below Physical Exam Constitutional: WD/WN, vitals as above Respiratory: normal respiratory effort, lungs clear to auscultation Cardiovascular: Rate/Rhythm: + irregularly irregular Heart Sounds: normal S1 and normal S2; no murmur Extremities: no edema Neurologic: PERRL, EOMI, accommodation nl, no face palsy, no dysarthria Results & Data ([facility]) Vital Signs (Past 12 Hours) Vital Signs Temp Pulse Pulse Resp BP BP Pulse Ox 05/21/22 07:39 37.1 C 90 18 99/52 L 95 05/21/22 04:00 36.8 C 71 18 106/49 L 95 05/20/22 23:07 86 05/20/22 22:54 38.1 C H 83 18 108/57 L 93
--- NOTE | 2022-05-21 14:27 | Communication Note ---
Date of Service: May 21, 2022 HS troponin has trended down. Stable findings.
[2022-05-21] MEDS ORDERED: DOXYCYCLINE HOME PACK 100 MG/CAP PO ONE (18:32)
--- NOTE | 2022-05-21 23:01 | Electrocardiogram Report ---
Test Reason : Blood Pressure : / mmHG Vent. Rate : 087 BPM Atrial Rate : 357 BPM P-R Int : 000 ms QRS Dur : 086 ms QT Int : 336 ms P-R-T Axes : 000 016 018 degrees QTc Int : 404 ms Atrial fibrillation When compared with ECG of 19-MAY-2022 18:12, Atrial fibrillation has replaced Sinus rhythm Confirmed by Jeff Morrell ([id number]) on 05/21/2022 11:00:42 PM Referred By: REFERRED SELF Confirmed By:Jeff Morrell
--- NOTE | 2022-05-23 09:30 | Electrocardiogram Report ---
Test Reason : Blood Pressure : / mmHG Vent. Rate : 059 BPM Atrial Rate : 208 BPM P-R Int : 000 ms QRS Dur : 096 ms QT Int : 352 ms P-R-T Axes : 000 017 034 degrees QTc Int : 348 ms Atrial fibrillation with slow ventricular response Abnormal ECG When compared with ECG of 20-MAY-2022 10:41, QT has shortened Confirmed by Jeff Morrell ([id number]) on 05/23/2022 9:30:16 AM Referred By: REFERRED SELF Confirmed By:Jeff Morrell
== END 2022-05-21 19:07 | disposition home or self-care (01) | DRG 872 ==
LOC: ED 17:23 → EDINP 20:39 → 2S 05-20 00:42